=== PATIENT | male | born 1960 | race Two or more races ===

== ENCOUNTER 2017-09-24 18:20 | Emergency (ER) | payer SELFPAY ==
[2017-09-24 18:54] LABS: Absolute Monocytes 0.7 K/uL (0.1-1.3); Absolute Neutrophil 3.8 K/uL (1.8-8.0); Basophils % 0.1 % (0-1.3); Eosinophils % 5.3 % (0-4.4); Hematocrit 45.6 % (39.6-49.0); Lymphocytes % 29.3 % (15.3-44.8); MCV 87.1 fL (80-100); MPV 9.3 fL (7.6-11.3); RBC Red Blood Cell Count 5.24 M/uL (4.33-5.43)
[2017-09-24 19:04] LABS: Glomerular Filtration Rate > 60 mL/min (>60); Potassium 3.1 mEq/L (3.6-5.0)
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
[2017-09-24 20:41] LABS: Urine Blood TRACE (NEG); Urine Glucose NEGATIVE (NEG); Urine Protein NEGATIVE (NEG)
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
[2017-09-24] MEDS ORDERED: TETANUS & DIPHTHERIA TOX,ADULT 0.5 ML VIAL ONE (21:43)
== END 2017-09-24 21:40 | disposition home or self-care (01) ==
LOC: ER 18:20
DX: M54.5 Low back pain (principal); M54.2 Cervicalgia; V49.49XA Driver injured in collision with other motor vehicles in traffic accident, initial encounter; I10 Essential (primary) hypertension
CPT/HCPCS: 36415; 70450; 71045; 71260; 72125; 74177; 80048; 81003; 85025; 90714; 99285; Q9967